=== PATIENT | female | born 1965 | race Caucasian/White ===

== ENCOUNTER 2020-01-18 16:01 | Outpatient (CLI) | payer BC, SELFPAY ==
--- NOTE | ~2020-01-18 | MM_ITS ---
EXAMINATION: MM screening collin BI w elio HISTORY: Screening TECHNIQUE: Craniocaudal and mediolateral oblique 3-D tomosynthesis images were obtained and synthetic 2-D images were generated. CAD analysis was submitted and interpreted. COMPARISON: Comparison to multiple prior studies sequentially, with oldest reviewed study dated 07/2014. BREAST PARENCHYMAL COMPOSITION: There are scattered areas of fibroglandular density. FINDINGS: There is no evidence of suspicious mass, calcification, or architectural distortion to sugg est malignancy in either breast. There has been no suspicious interval change. IMPRESSION: 1. No mammographic evidence of malignancy. 2. Recommend routine screening mammography in one year. BI-RADS Category 1: Negative Reviewed, dictated and finalized at location A.
== END 2020-01-18 16:02 | disposition home or self-care (01) ==
PROVIDERS: PCP Family Medicine; Visit Provider Obstetrics & Gynecology
DX: Z12.31 Encounter for screening mammogram for malignant neoplasm of breast (principal)
CPT/HCPCS: 77063; 77067

== ENCOUNTER 2020-03-07 08:57 | Outpatient (CLI) | payer BC, SELFPAY ==
--- NOTE | ~2020-03-07 | XR_ITS ---
XR abdomen/kub 1V DATE: 03/07/2020 09:12 INDICATION: Constipation TECHNIQUE: AP view COMPARISON: None FINDINGS: There is no evidence of bowel obstruction or any significant retention of fecal material wi thin the colon. The psoas shadows are intact. No visceromegaly or significant abnormal calcification is evident. There is mild rotatory dextroscoliosis of the lumbar spine. There is osteoarthritis at both hip joints. IMPRESSION: Nonspecific abdomen; no evidence of bowel obstruction or constipation Reviewed, dictated and finalized at Location A. Reviewed, dictated and finalized at location A. IMPRESSION: Nonspecific abdomen; no evidence of bowel obstruction or constipati on
== END 2020-03-07 08:58 | disposition home or self-care (01) ==
PROVIDERS: PCP Family Medicine; Visit Provider Physician Assistant
DX: K59.00 Constipation, unspecified (principal)
CPT/HCPCS: 74018

== ENCOUNTER 2020-09-13 08:59 | Outpatient (CLI) | payer BC, SELFPAY | END 2020-09-13 09:00 | disposition home or self-care (01) | LOC: ANHCOVIDVC 08:59 | PROVIDERS: PCP Family Medicine | DX: Z23 Encounter for immunization (principal) | CPT/HCPCS: 0001A; 91300 ==

== ENCOUNTER 2020-09-25 08:58 | Inpatient (IN) | payer BC, SELFPAY ==
[2020-09-25] VITALS (12 sets, daily range): BP systolic 127–157; BP diastolic 64–87; PULSE 68–100; RESP 15–22; TEMP 36.3–37; O2SAT 94–98; BMI 31.6
--- NOTE | 2020-09-25 | ECHO_ITS ---
Patient Info Name: Melina Velasco Age: 55 years : 1965 Gender: Female Ht: 63 in Wt: 178 lbs BSA: 1.92 m2 HR: 81 bpm BP: 135 / 76 mmHg Heart Rhythm: Sinus Rhythm Technical Quality: Poor Exam Date: 09/25/2020 3:51 PM Exam Location: [facility] Pulmonary Exam Room: [facility] Patient Status: Inpatient Admit Date: 09/25/2020 Staff Ordering Physician: Gorge Coronel MD Rehabilitation Therapy Technician: Steffi Hernadez RDCS Attending Provider: Azael Rico MD Exam Type: CA echo dop color flow w con Study Info Indications - NSTEMI Complete two-dimensional, color flow and Doppler transthoracic echocardiogram is performed with contrast to opacify the left ventricle and to improve the deliniation of the left ventricle endocardial borders. Contrast/Agitated Saline Contrast/Ag. Saline: Definity Amount: 1.00 ml Existing IV Access: Yes IV Access Condition: patent with no signs of infiltration Reason for Poor Study: patient body habitus Summary 1. Left ventricular chamber dimension is normal. 2. Left ventricular systolic function is normal, estimated at 65-70%. 3. There is no increased left ventricular wall thickness. 4. The left ventricular diastolic function is grade I diastolic dysfunction. 5. There is mild tricuspid valve regurgitation. Left Ventricle Left ventricular chamber dimension is normal. Left ventricular systolic function is normal, estimated at 65-70%. There is no increased left ventricular wall thickness. The left ventricular diastolic function is grade I diastolic dysfunction. Right Ventricle Right ventricular chamber dimension is normal. Right ventricular systolic function is normal. Left Atria Left atrial chamber dimension is normal. Right Atria Right atrial chamber dimension is normal. Atrial Septum Intact interatrial septum visualized by color flow imaging. Aortic Valve The aortic valve is trileaflet. There is mild aortic valve sclerosis. There is no aortic valve stenosis. There is trace aortic valve regurgitation. Pulmonic Valve The pulmonic valve is normal. There is no pulmonic valve stenosis. There is trace pulmonic regurgitation. Mitral Valve The mitral valve has normal leaflets. There is no mitral valve stenosis. There is trace mitral valve regurgitation. Tricuspid Valve The tricuspid valve leaflets are normal. There is no significant tricuspid valve stenosis. There is mild tricuspid valve regurgitation. No pulmonary hypertension, estimated pulmonary arterial systolic pressure is 29 mmHg. Pericardium/Pleural The pericardium appears normal. There is no pericardial effusion. Inferior Vena Cava Normal inferior vena cava with >50% collapse upon inspiration consistent with normal right atrial pressure, 10 mmHg. Aorta The aortic root size at the sinus of Valsalva is normal. The prox ascending aorta size is normal. Left Ventricular Outflow Tract Name Value Normal LVOT 2D LVOT Diameter 1.98 cm LVOT Doppler LVOT Peak Gradient 7 mmHg LVOT Mean Gradient
--- NOTE | ~2020-09-25 | XR_ITS ---
EXAMINATION: XR chest 1V portable 09/25/2020 13:14 INDICATION: Tingling chest pain PROCEDURE: AP portable chest COMPARISON: No prior studies for comparison. FINDINGS: The lungs are clear. The cardiomediastinal silhouette is within normal limits. There are no pleural effusions. There is no pneumothorax suspected. IMPRESSION: 1: NO ACUTE CARDIOPULMONARY DISEASE. Reviewed, dictated and finalized at location B.
--- NOTE | ~2020-09-25 | CT_ITS ---
EXAMINATION: CTA chest PE protocol EXAM DATE: 09/27/2020 09:28 INDICATION: Tingling chest pain, shortness of breath. TECHNIQUE: Spiral CTA of the chest (pulmonary arteries) was performed with 100 cc Omnipaque 350 intr avenous contrast injection. Images were acquired during the pulmonary arterial phase. Coronal maxi mum intensity projection 3D-reconstructions were created by the technologist on dedicated workstation . Axial, coronal and sagittal reformatted images were reviewed. The dose-length product (DLP) for t his examination was 536.80 mGy-cm. The exposure was tailored according to patient size (auto mA exp osure control), and iterative reconstruction (ASIR) was used as additional dose reduction technique. There is no prior study for comparison. FINDINGS: There are no pulmonary emboli in the 1st through 3rd order (central and interlobar) pulmon niraj arteries. Some loss of attenuation in the left basilar segmental pulmonary from respiratory jai on, these regions not confidently evaluated. No Intraluminal filling defects identified. No thoraci c aortic dissection. Linear right lower lobe subsegmental atelectasis. There are no pleural or marie cardial effusions. Tracheobronchial tree is patent. There is no mediastinal, hilar or axillary ly mphadenopathy. There is no pneumothorax. Mild cardiomegaly. No evidence of coronary arterial patrick cification. There is mild to moderate splenic flexure colonic diverticulosis. There is no adjacent i nflammatory change to suggest diverticulitis. There is thoracic spondylosis without osteoblastic or o steolytic lesions identified. IMPRESSION: 1. Limited left basilar segmental evaluation, but no pulmonary emboli are suspected. 2. Right lower lobe subsegmental atelectasis. 3. Mild cardiomegaly. Reviewed, dictated and finalized at location A. IMPRESSION: 1. Limited left basilar segmental evaluation, but no pulmonary emboli are susp ected. 2. Right lower lobe subsegmental atelectasis. 3. Mild cardiomegaly.
--- NOTE | ~2020-09-25 | US_ITS ---
EXAMINATION: US venous doppler [facility] DATE: 09/27/2020 09:55 INDICATION: Shortness of breath TECHNIQUE: Grayscale ultrasound images without and with compression and Doppler ultrasound images of the bilateral lower extremity veins were obtained. COMPARISON: None. FINDINGS: The visualized portions of right common femoral vein, profunda (deep) femoral vein, femoral vein, pop liteal vein, posterior tibial veins, peroneal veins, gastrocnemius vein and greater saphenous vein ou tflow are patent. The visualized portions of left common femoral vein, profunda femoral vein, femoral vein, popliteal v ein, posterior tibial veins, peroneal veins, gastrocnemius vein and greater saphenous vein outflow ar e patent. IMPRESSION: 1. No deep venous thrombosis in either lower limb. Reviewed, dictated and finalized at location A.
--- NOTE | 2020-09-25 09:09 | ECG_ITS ---
Measurements Intervals Catherine Rate: 74 P: 71 NH: 160 QRS: 19 QRSD: 86 T: 44 QT: 359 QTc: 400 Interpretive Statements SINUS RHYTHM BASELINE ARTIFACT- I, II, AVR, AVL, AVF, V1-V2 NORMAL ECG Electronically Signed On 09-25-2020 9:19:00 CDT by Jagdish Moore D.O.
[2020-09-25 09:29] LABS: Basophils Percent Auto 0.6 % (0.2-1.2); Eosinophils Absolute Auto 0.4 K/mm3 (0-0.3); Eosinophils Percent Auto 7.1 % (0-4.4); Hematocrit 45.9 % (37.0-47.0); Hemoglobin 14.8 g/dL (12.0-15.0); Immature Granulocyte Absolute 0.01 K/mm3 (0.00-0.031); Immature Granulocyte Percent A 0.2 % (0-0.5); Lymphocytes Absolute Auto 1.52 K/mm3 (0.9-3.2); Lymphocytes Percent Auto 30.9 % (18.3-44.2); Mean Corpuscular HGB Conc 32.2 g/dl (32-36); Mean Corpuscular Volume 93.1 fl (80-100); Mean Platelet Volume 8.8 fl (7.4-10.4); Monocytes Absolute Auto 0.4 K/mm3 (0.1-0.6); Monocytes Percent Auto 8.3 % (2.6-8.5); Neutrophils Absolute Auto 2.6 K/mm3 (1.3-6.7); Neutrophils Percent Auto 52.9 % (45.5-73.1); Platelet Count Result 221 k/mm3 (150-375); Red Blood Count 4.93 M/mm3 (4.2-5.4); Red Cell Distribution Width 12.9 % (11.5-14.5); White Blood Count 4.9 K/mm3 (4.5-10.0)
--- NOTE | 2020-09-25 09:48 | ED.GENADULT ---
HPI - General Adult General Chief complaint: Neuro Symptoms/Deficit Stated complaint: arm tingling resolved Time Seen by Provider: 09/25/20 09:03 Source: patient Mode of arrival: EMS Limitations: no limitations History of Present Illness HPI narrative: Patient presents with chief complaint of tingling in the left arm that moved up into her chest that lasted approximately 15 minutes while drying off after getting out of the shower. Patient reports history of right rotator cuff surgery and some cervical issues with occasional nerve pains for which she takes Celebrex. Patient reports the tingling she experiences normally does not move into her chest that she became concerned. Patient states that she did not develop any speech issues, unilateral deficits or extremity weakness, diaphoresis, chest pain, shortness of breath, nausea, vomiting, changes in vision or hearing. Patient was able to call her and called EMS. Patient states that she was given aspirin by EMS. Patient denies any symptoms at this time and states that her symptoms have resolved completely. Patient denies history of W[place] or stroke. Patient reports taking metoprolol for tachycardia but otherwise denies any other cardiac issues. Patient denies close family history of [place] or stroke. Patient denies smoking, drinking alcohol or using recreational drugs. Patient denies any changes to her medications recently. Related Data Allergies Allergy/AdvReac Type Severity Reaction Status Date / Time cefuroxime Allergy Unknown unknown Verified 09/25/20 09:22 cephalexin Allergy Unknown unknown Verified 09/25/20 09:22 Review of Systems Review of Systems: Narrative: CONSTITUTIONAL: Denies fever, chills, or sweats. EYES: Denies visual changes, redness, or discharge. ENT: Denies rhinorrhea, congestion, sore throat, or otalgia. CARDIOVASCULAR: Denies chest pain, palpitations, or edema. RESPIRATORY: Denies cough or dyspnea. GASTROINTESTINAL: Denies abdominal pain, nausea, vomiting, or diarrhea. GENITOURINARY: Denies dysuria or hematuria. SKIN: Denies rash or itching. MUSCULOSKELETAL: Denies back pain, joint pain, or myalgia. NEUROLOGIC: Reports resolved tingling denies headache, numbness, dizziness, or weakness. PSYCHIATRIC: Denies anxiety or depression. [facility] Past Medical History Medical History Complete rotator cuff tear or rupture of right shoulder, not specified as traumatic Irritable bowel Lumbar radiculitis Neuropathy Right rotator cuff tear Surgical History Surgical History H/O section (~10/2003) H/O section (~01/2007) H/O dilation and curettage (~2002) S/P tonsillectomy and adenoidectomy Family History Family History Father Family history of gout Hypertension Family history of alcoholism Cerebrovascular accident Family history of arthritis Mother Hypertension Family history of arthritis Family history of malignant neoplasm of breast in first degree relative Other Family history of scoliosis Social History Social History Social History: to Rufino who is the durable power attorney law clerk for healthcare. The patient is a full code. She has 2 children. She is a homemaker. Lifelong nonsmoker. Does not use any alcohol or illicit drugs. Smoking status: Never smoker Second hand tobacco smoke exposure: No Alcohol intake: never Substance use: never Substance use type: does not use Gender identity (if verbalized by the patient): Female Spiritual care concerns: No Exam Narrative: Exam Narrative: GENERAL: Well-appearing, well-nourished, and in no acute distress. HEAD: Normocephalic, atraumatic. EYES: PERRLA and EOMI. ENT: Nares clear, no rhinorrhea or epistaxis. Mucous membranes moist. Oropharynx without t
[2020-09-25 09:51] LABS: Anion Gap 6 mmol/L (8-16); Blood Urea Nitrogen 17 mg/dL (7-17); Carbon Dioxide 30 mmol/L (22-30); Chloride 104 mmol/L (98-107); Estimated CRCL calculation 89 ml/min; Estimated Glomerular Filt Rate > 60; Glucose 92 mg/dL (65-105); Potassium 4.1 mmol/L (3.4-5.0); Sodium 140 mmol/L (137-145)
[2020-09-25 10:01] LABS: INR 0.8; Prothrombin Time 11.8 Seconds (11.1-14.7)
[2020-09-25 10:02] LABS: Partial Thromboplastin Time 28.6 SECONDS (22.3-36.8)
[2020-09-25 10:03] LABS: Troponin I 0.023 ng/mL (0.000-0.034)
[2020-09-25 12:43] LABS: Troponin I 0.552 ng/mL (0.000-0.034)
--- NOTE | 2020-09-25 13:34 | PC.NURSE ---
Called dietary at this time and ordered lunch tray for pt.
--- NOTE | 2020-09-25 14:45 | ADMGEN ---
This patient, Melina Velasco, was admitted to IMU Room 206-01 at 1425 on 09/25/2020. Patient/family oriented to hospital policies and general routines including ID bracelet, bed and alarms, visiting hours, pain management, procedures, bathroom and other care routines, personal items, smoking policy, room service/diet, and visiting hours. Information on how to activate the Rapid Response Team has been discussed. Patient/Family are encouraged to report perceived risks to care and to ask questions if they do not understand what they are told or what they should do.
--- NOTE | 2020-09-25 14:46 | PM.IMHP ---
H&P: HPI History of Present Illness Date/Time: 09/25/20 14:46 this is a 55-year-old female patient who has no prior history of heart disease. The patient does have some back pain and some arthritis. She has been on Celebrex. The patient was drying off after getting out of the shower when she developed some tingling to her left arm that up into her chest. It did not radiate into her neck and this lasted for about 15 minutes while dry off after getting out of the shower. The patient was not short of breath. She said that it was a dull pain. She said that she had pain in till she got in the ambulance and took aspirin. She had no nausea vomiting. No fever chills. No cough. The patient has a history of tachycardia and has been placed on metoprolol sometime ago. Patient stated she is due for at this morning. She does not feel any palpitations today but she has felt palpitations in the past. She does not smoke drink or use recreational drugs. Troponin was noted to be 0.552 on her 2nd troponin. Chest x-ray was read as no acute cardiopulmonary disease. Pain. The patient stated that she had a Holter monitor placed last year. Reviewing the records I see a Holter monitor from 05/25/2020. This was found to be unremarkable Holter monitor with sinus rhythm a heart rate of 81. Rare supraventricular ectopy in the forms of PACs. Patient had been placed on metoprolol last year for the tachycardia and palpitations the patient is being admitted to inpatient on the date of service of 09/25/2020.. Chief Complaint: Chest pain Review of Systems Review of Systems: All systems reviewed & are unremarkable except as noted in HPI and below Constitutional: Constitutional: Reports as per HPI and Reports no additional constitutional complaints Eyes: Eyes: Reports as per HPI and Reports no additional eye complaints ENT: Reports system reviewed and no additional complaints, except as documented and Reports Normal hearing present Cardiovascular: Cardiovascular: Reports no additional cardiovascular complaints Respiratory: Respiratory: Reports no additional respiratory complaints and Reports no additional respiratory complaints Gastrointestinal: Gastrointestinal: Reports as per HPI and Reports no additional gastrointestinal complaints Musculoskeletal: Musculoskeletal: Reports no additional musculoskeletal complaints Integumentary/Breasts: Skin/Breast: Reports system reviewed and no additional complaints, except as docu and Reports as per HPI Neurologic: Reports system reviewed and no additional complaints, except as documented, Reports as per HPI and Reports Normal hearing present Psychiatric: Psychiatric: Reports no additional psychiatric complaints and Reports as per HPI Endocrine: Endocrine: Reports no additional endocrine complaints Hematologic/Lymphatic: Hematologic/Lymphatic: Reports no additional hematologic/lymphatic complaints Allergic/Immunologic: Allergic/Immunologic: Reports no additional allergic/immunologic complaints [facility] Past Medical History Medical History (Updated 09/25/20 @ 14:56 by Giselle Kahn NP) Complete rotator cuff tear or rupture of right shoulder, not specified as traumatic Irritable bowel Lumbar radiculitis Neuropathy Right rotator cuff tear Surgical History Surgical History (Updated 09/25/20 @ 14:56 by Giselle Kahn NP) H/O section (~10/2003) H/O section (~01/2007) H/O dilation and curettage (~2002) S/P tonsillectomy and adenoidectomy Family History Family History Father Family history of gout Hypertension Family history of alcoholism Cerebrovascular accident Family history of arthritis Mother Hypertension Family history of arthritis Family history of malignant neoplasm of breast in first degree relative Other Family history of scoliosis Social History Social History (Updated 09/25/20 @ 14:58 by Giselle Kahn,
--- NOTE | 2020-09-25 15:24 | PM.CNCAR ---
Assessment and Plan Assessment and plan (1) Non-ST elevation AR (NSTEMI): Code(s): I21.4 - Non-ST elevation (NSTEMI) myocardial infarction Status: Acute Assessment and Plan: Patient has ruled in for myocardial infarction. Her left arm pain is her angina. Will DC the stress test which is ordered and after talked her about the risks benefits alternative is will perform an ischemic evaluation via a cardiac catheterization. Keep her NPO after midnight less she becomes unstable in which case we will do it emergently. Will continue to trend cardiac enzymes until peak. I ordered a 2D echocardiogram with Doppler. Lovenox 1 milligram/kilogram subcu x1. Aspirin 81 mg p.o. daily. Metoprolol succinate will be continued at 25 mg p.o. daily. Rosuvastatin 20 mg p.o. daily to be started also. P.r.n. nitroglycerin 0.4 mg sublingual p.r.n. chest pain. (2) Mixed hyperlipidemia: Code(s): E78.2 - Mixed hyperlipidemia Status: Acute Assessment and Plan: Start statin (3) Palpitations: Code(s): R00.2 - Palpitations Status: Acute Assessment and Plan: On metoprolol (4) Left arm pain: Code(s): M79.602 - Pain in left arm Status: Acute Assessment and Plan: This is her angina History of Present Illness History of Present Illness Consult date/time: 09/25/20 15:24 Requesting physician: Abdirashid Barahona PA-C Consult reason: Other (Non-STEMI) Reason For Visit: NSTEMI- Elvated troponin Narrative: Date of service 09/25/2020 Reason for consultation: Arm pain and positive troponins History patient is a 55-year-old female who does have high a cholesterol but otherwise is a fairly healthy woman. She has a history of palpitations but has no diabetes, high blood pressure. She does not have a history of premature coronary disease in family. She came to the hospital today after an episode of left arm pain. She got out of the shower and shortly thereafter started to develop some left arm discomfort. It started in her left shoulder and went up and down her left arm. She was a little bit nauseated but had no chest pain, shortness of breath, diaphoresis. She simply did feel very well and after a few minutes she decided to call 911. EMS told her to chew up a adult strength aspirin which she did and her symptoms started to resolve. EMS did arrive and had her 2 more baby aspirins. She then went to the emergency department. Initial troponin was negative but the 2nd troponin has turned positive at 0.552. Her symptoms in total lasted about an hour. She is now arm and chest pain-free. In general she has not had any recent chest pain with exertion. She has been more dyspneic with activity over the past couple months such as doing things like climbing up and down stairs. Otherwise she denies any syncope, presyncope, paroxysmal nocturnal dyspnea, orthopnea, edema. She does have a history of palpitations which are brief and lasting for a few seconds. She takes metoprolol for the palps Review of Systems Review of Systems: All systems reviewed & are unremarkable except as noted in HPI and below Constitutional: Constitutional: Denies weakness Eyes: Eyes: Denies blurry vision ENT: Reports Normal hearing present Cardiovascular: Cardiovascular: Denies leg edema and Reports palpitations Comments: Arm pain Respiratory: Respiratory: Reports dyspnea on exertion Gastrointestinal: Gastrointestinal: Denies abdominal pain Genitourinary: Genitourinary: Denies flank pain Musculoskeletal: Musculoskeletal: Reports back pain and Denies neck pain Integumentary/Breasts: Skin/Breast: Denies dry skin Neurologic: Denies headache(s) Psychiatric: Psychiatric: Denies anxiety and Denies confusion Endocrine: Endocrine: Denies fatigue and Denies flushing Hematologic/Lymphatic: Hematologic/Lymphatic: Denies easy bleeding Allergic/Immunologic: Allergic/Immunologic: Denies GI upset with certain foods and D
[2020-09-25] MEDS: PERFLUTREN LIPID MICROSPHERES 1.5 ML VIAL DILUTED TO 10 ML TOTAL VOLUME IV PUSH (16:20)
[2020-09-25] MEDS: ROSUVASTATIN 10 MG TABLET 20 MG PO (17:59)
[2020-09-25] MEDS: ENOXAPARIN 80 MG/0.8 ML SYRINGE SUB-Q (17:59)
[2020-09-25] MEDS: METOPROLOL SUCCINATE EXT REL 25 MG TABCR PO (17:59)
[2020-09-25 19:44] LABS: Troponin I 0.356 ng/mL (0.000-0.034)
[2020-09-25] MEDS: ACETAMINOPHEN 325 MG TABLET 650 MG PO (21:46)
[2020-09-26] VITALS (23 sets, daily range): BP systolic 111–141; BP diastolic 58–98; PULSE 64–98; RESP 14–20; TEMP 36.1–36.8; O2SAT 94–98
[2020-09-26 06:02] LABS: Basophils Percent Auto 0.4 % (0.2-1.2); Eosinophils Absolute Auto 0.2 K/mm3 (0-0.3); Eosinophils Percent Auto 3.6 % (0-4.4); Hematocrit 41.6 % (37.0-47.0); Hemoglobin 13.5 g/dL (12.0-15.0); Immature Granulocyte Absolute 0.02 K/mm3 (0.00-0.031); Immature Granulocyte Percent A 0.3 % (0-0.5); Lymphocytes Absolute Auto 2.05 K/mm3 (0.9-3.2); Lymphocytes Percent Auto 30.7 % (18.3-44.2); Mean Corpuscular HGB Conc 32.5 g/dl (32-36); Mean Corpuscular Volume 92.4 fl (80-100); Mean Platelet Volume 9.1 fl (7.4-10.4); Monocytes Absolute Auto 0.6 K/mm3 (0.1-0.6); Monocytes Percent Auto 8.4 % (2.6-8.5); Neutrophils Absolute Auto 3.8 K/mm3 (1.3-6.7); Neutrophils Percent Auto 56.6 % (45.5-73.1); Platelet Count Result 213 k/mm3 (150-375); Red Cell Distribution Width 12.9 % (11.5-14.5); White Blood Count 6.7 K/mm3 (4.5-10.0)
[2020-09-26 06:06] LABS: Alanine Aminotransferase 23 U/L (4-35); Alkaline Phosphatase 81 U/L (38-126); Anion Gap 6 mmol/L (8-16); Aspartate Amino Transferase 26 U/L (14-36); Bilirubin,Total 0.3 mg/dL (0.2-1.3); Blood Urea Nitrogen 16 mg/dL (7-17); Calcium 8.9 mg/dL (8.4-10.2); Carbon Dioxide 28 mmol/L (22-30); Chloride 106 mmol/L (98-107); Estimated CRCL calculation 94 ml/min; Estimated Glomerular Filt Rate > 60; Glucose 96 mg/dL (65-105); Magnesium 2.1 mg/dL (1.6-2.3); Potassium 3.8 mmol/L (3.4-5.0); Sodium 140 mmol/L (137-145)
[2020-09-26 06:10] LABS: Lactic Acid Reflex 0.8 mmol/L (0.7-2.1)
[2020-09-26] MEDS: PANTOPRAZOLE 40 MG TABLET PO (09:13)
[2020-09-26] MEDS: ASPIRIN 81 MG ENTERIC TABLET PO (09:13)
[2020-09-26] MEDS: ROSUVASTATIN 10 MG TABLET 20 MG PO (09:13)
[2020-09-26] MEDS: METOPROLOL SUCCINATE EXT REL 25 MG TABCR PO (09:14)
--- NOTE | 2020-09-26 11:59 | P.PCNCC_ITS ---
Cardiac Cath Procedure Note Date of procedure:: 09/26/20 Performing physician:: Roberto Paredes MD date of service September 26, 2020 Procedure Procedure performed:: 1-Moderate sedation that started at 12:11 p.m.and ended at 12:24 p.m. using 2 of Versed and 50mcg fentanyl. The registered nurse was Kristie nugent 2-Selective left and right coronary angiogram. 3-Left heart catheterization with measurement of LVEDP and measurement of gradi ent across aortic valve. 4-Right common femoral arterial angiogram. 5-Deployment of 6 Australian Angio-Seal. Sedation/Medication given:: Moderate sedation. Access site:: Right common femoral artery. Estimated blood loss:: 10cc Procedure note:: After informed consent patient was brought in to warehouse laborer with the was draped and prepped in usual manner. Moderate sedation was given and the right groin was infiltrated using 1% lidocaine. Five Australian sheath was obtained using micropuncture needle and the modified Seldinger technique. Selective left coronary angiogram was done using JL4 catheter with the tip of the catheter placed in the left main coronary artery. Selective right coronary angiogram was done using JR4 catheter with the tip of the catheter placed to the right coronary artery. After that 5 Australian pigtail catheter was advanced across the aortic valve into the left ventricle with measurement of LVEDP and measurement of gradient across aortic valve. Right common femoral arterial angiogram was done. Findings:: 1- left coronary artery is a large artery that divides into large LAD, Medium-sizedcircumflex artery. Left main is free of disease. 2- left anterior descending artery is a large artery that runs and wraps around the apex. Free of disease. Large diagonal branch free of disease. 3- leftcircumflex artery is a Medium-sized artery and free of disease. 4- right coronary artery is very huge artery and free of disease. It is dominant. 5- LVEDP was 10 mm Hg and no gradient across aortic valve. 6- LV angiogram shows normal LV systolic function with estimated ejection fraction 75%. Normal ascending aorta. 6- opening arterial pressure was 150/80 and closing pressure was 120/70 7- right femoral artery angiogram shows no significant disease in the right common femoral artery. Conclusion:: 1- No coronary artery disease. 2- Unsure of the etiology of the troponin elevation. Assessment and Plan Additional Plan Continue risk factor modification for CAD. If There is any clinical suspicion for pulmonary embolism, rule it out.
--- NOTE | 2020-09-26 11:59 | WPDHPUPDATE1 ---
History and Physical Update Update Date/Time: 09/26/20 11:59 History and Physical has been reviewed, including an updated exam of the patient. There are NO changes in the patient's condition. Risks, benefits, and alternatives have been discussed and questions answered. Patient agrees to proceed with procedure.
--- NOTE | 2020-09-26 11:59 | WPDMODSED ---
Moderate Sedation Note-Pt Data Patient Data Allergies Allergy/AdvReac Type Severity Reaction Status Date / Time cefuroxime Allergy Unknown unknown Verified 09/25/20 09:22 cephalexin Allergy Unknown unknown Verified 09/25/20 09:22 Home Medications Medication Instructions Recorded Confirmed Type metoprolol succinate 25 mg 25 mg PO BID #180 tablet 05/21/20 09/25/20 Rx tablet,extended release 24 hr omeprazole 20 mg capsule,delayed 20 mg PO DAILY #90 cap 07/01/20 09/25/20 Rx release celecoxib 200 mg capsule 200 mg PO BID #180 cap 09/04/20 09/25/20 Rx Current Medications: Active Medications Acetaminophen (Acetaminophen 325 Mg Tablet) 650 mg PO ONCE PRN PRN Reason: Mild Pain (1-3) or Fever Last Admin: 09/25/20 21:46 Dose: 650 mg Documented by: Aspirin (Aspirin 81 Mg Enteric Tablet) 81 mg PO [facility] Last Admin: 09/26/20 09:13 Dose: 81 mg Documented by: Celecoxib (Celecoxib 200 Mg Capsule) 200 mg PO BID [facility] Metoprolol Succinate (Metoprolol Succinate Ext Rel 25 Mg Tabcr) 25 mg PO [facility] Last Admin: 09/26/20 09:14 Dose: 25 mg Documented by: Pantoprazole Sodium (Pantoprazole 40 Mg Tablet) 40 mg PO DAILY [facility] Stop: 10/26/20 09:01 Last Admin: 09/26/20 09:13 Dose: 40 mg Documented by: Rosuvastatin Calcium (Rosuvastatin 10 Mg Tablet) 20 mg PO [facility] Last Admin: 09/26/20 09:13 Dose: 20 mg Documented by: Sedation/Anesthesia: No previous sedation/anesthesia problems (including family history). [facility] Past Medical History Medical History Complete rotator cuff tear or rupture of right shoulder, not specified as traumatic Irritable bowel Lumbar radiculitis Neuropathy Right rotator cuff tear Surgical History Surgical History H/O section (~10/2003) H/O section (~01/2007) H/O dilation and curettage (~2002) S/P tonsillectomy and adenoidectomy Family History Family History Father Family history of gout Hypertension Family history of alcoholism Cerebrovascular accident Family history of arthritis Mother Hypertension Family history of arthritis Family history of malignant neoplasm of breast in first degree relative Other Family history of scoliosis Social History Social History Social History: to Rufino who is the durable power trial attorney for healthcare. The patient is a full code. She has 2 children. She is a homemaker. Lifelong nonsmoker. Does not use any alcohol or illicit drugs. Smoking status: Never smoker Second hand tobacco smoke exposure: No Alcohol intake: never Substance use: never Substance use type: does not use Gender identity (if verbalized by the patient): Female Spiritual care concerns: No Mod Sed Physical Exam Physical Exam Pre Procedural Exam: Normal: Appearance, Eyes, Ears, Nose, Neck, Throat, Airway, Lungs, Heart Size, Heart Rate, Heart Rhythm, Neuro Exam, Abdomen, Liver, Kidneys, Spleen, Breasts, Genitalia, Extremities and Skin Hours since solid foods: 8 Hours since liquid intake: 8 Internal Medicine - PN: Obj Da Vital Signs Vital Signs: Vital Signs - 24 hr 09/25/20 12:46 09/25/20 13:34 09/25/20 14:20 Temperature Pulse Rate 79 83 97 Respiratory Rate 17 19 22 H Blood Pressure 139/71 135/76 128/75 Pulse Oximetry 96 98 94 09/25/20 14:49 09/25/20 16:00 09/25/20 17:59 Temperature 36.4 C 36.4 C Pulse Rate 84 84 100 Respiratory Rate 17 17 Blood Pressure 146/82 H 146/82 H Pulse Oximetry 97 97 09/25/20 20:00 09/25/20 22:00 09/26/20 00:00 Temperature 36.3 C L 36.1 C L Pulse Rate 91 79 68 Respiratory Rate 18 20 Blood Pressure 141/87 H 126/75 Pulse Oximetry 95 96 09/26/20 02:00 09/26/20 03:56 09/26/20 04:00 Temperature 36.3 C L Pulse Rate 70 64 66 Respiratory Rate 20
--- NOTE | 2020-09-26 14:07 | SUR.PHASEII ---
Right femoral artery site with dressing intact, no signs of redness, hematoma or bleeding. right pedal pulse palpable. HOB elevated to 30 degrees at 1340. Drinking sips of clear liquids without nausea. Report called to Britt FULLER on IMU. at bedside.
[2020-09-26] MEDS: SODIUM CHLORIDE 0.9% IV 1,000 ML 125 ML IV CONT (14:19)
[2020-09-26] MEDS: CELECOXIB 200 MG CAPSULE PO (14:20)
--- NOTE | 2020-09-26 18:12 | PM.IMPN ---
Progress Note: A&P Assessment and Plan (1) Chest pain: Code(s): R07.9 - Chest pain, unspecified Status: Acute Assessment and Plan: Todd presents with acute onset of chest pain getting out of the shower. CXR clear. Echo showing EF 65-70%, grade I diastolic dysfunction. Troponin elevated to 0.66. LHC performed today essentially normal. Etiology unclear but consider pericarditis/myocarditis or PE especially given her recent complaints of MARTIN. Continue IV fluids. Check CTA tomorrow 24hours after LHC. Check dopplers in am. Hold anticoagulation given the recent LHC. (2) Elevated troponin: Code(s): R77.8 - Other specified abnormalities of plasma proteins Status: Acute Assessment and Plan: As above. (3) Tachyarrhythmia: Code(s): R00.0 - Tachycardia, unspecified Status: Acute Assessment and Plan: Pateint with hx of tachycardia and palpitations. Holter last year results noted and was started on metoprolol. This has been resumed here. (4) Mixed hyperlipidemia: Code(s): E78.2 - Mixed hyperlipidemia Status: Acute Assessment and Plan: TG 131, TC 220, LDL 142, HDL 52 in June. LFTs okay. Crestor started. (5) GERD (gastroesophageal reflux disease): Code(s): K21.9 - Gastro-esophageal reflux disease without esophagitis Status: Acute Assessment and Plan: Stable. Continue home medication. (6) DVT prophylaxis: Code(s): Z29.9 - Encounter for prophylactic measures, unspecified Status: Acute Assessment and Plan: lovenox held today for LHC. resume in am if LE doppler negative Subjective Date/time seen: 09/26/20 18:12 Interval history: 55yo female here for chest pressure that radiated down her left arm. She is back from her [facility]. No further chest pressure. No recent fever or chills. Did have cold symptoms 2 weeks ago. Received her first COVID vaccine 10 days ago. Has been more SOB past few weeks with exertion. Exam Narrative: Exam Narrative: AF 97.5 132/74 97 14 98%ra Gen - NARD Chest - CTA bilaterally, nml RR CV - RRR S1/S2 Abd - Soft, NT/ND, Positive BS Ext - No pedal edema. right groin site without hematoma. 2+ PT bilaterally Neuro - Alert and oriented. Nonfocal exam. Psych - Nml mood and affect Skin - Warm and dry Objective Data Vital Signs Vital Signs: Vital Signs - 24 hr 09/25/20 20:00 09/25/20 22:00 09/26/20 00:00 Temperature 97.4 F L 97.0 F L Pulse Rate 91 79 68 Pulse Rate [Bilateral Pedal (Dorsalis Pedis) Palpation] Respiratory Rate 18 20 Blood Pressure 141/87 H 126/75 Pulse Oximetry 95 96 09/26/20 02:00 09/26/20 03:56 09/26/20 04:00 Temperature 97.3 F L Pulse Rate 70 64 66 Pulse Rate [Bilateral Pedal (Dorsalis Pedis) Palpation] Respiratory Rate 20 20 Blood Pressure 112/62 Pulse Oximetry 97 97 09/26/20 06:00 09/26/20 08:00 09/26/20 09:34 Temperature 97.2 F L Pulse Rate 80 85 Pulse Rate [Bilateral Pedal (Dorsalis Pedis) Palpation] Respiratory Rate 14 Blood Pressure 141/80 H Pulse Oximetry 98 98 09/26/20 10:00 09/26/20 12:40 09/26/20 12:55 Temperature Pulse Rate 84 76 76 Pulse Rate [Bilateral Pedal (Dorsalis Pedis) Palpation] 84 84 Respiratory Rate 16 16 Blood Pressure 123/98 H 125/78 Pulse Oximetry 95 95 09/26/20 13:10 09/26/20 13:25 09/26/20 13:40 Temperature Pulse Rate 76 72 76 Pulse Rate [Bilateral Pedal (Dorsalis Pedis) Palpation] 84 84 77 Respiratory Rate 16 16 16 Blood Pressure 125/78 125/73 111/73 Pulse Oximetry 94 94 97 09/26/20 14:00 09/26/20 14:40 09/26/20 15:40 Temperature 97.3 F L 97.8 F Pulse Rate 88 88 90 Pulse Rate [Bilateral Pedal (Dorsalis Pedis) Palpation] Respiratory Rate 16 16 Blood Pressure 135/80 137/77 Pulse Oximetry 96 97 09/26/20 16:00 09/26/20 16:40 Temperature 97.5 F L Pulse Rate 90 98 Pulse Rate [Bilateral Pedal (Dorsalis Pedis) Pa
[2020-09-26] MEDS: SODIUM CHLORIDE 0.9% IV 1,000 ML 100 ML IV CONT (22:52)
[2020-09-27] VITALS (7 sets, daily range): BP systolic 127–138; BP diastolic 59–69; PULSE 67–93; RESP 14–16; TEMP 36.2–36.9; O2SAT 95–99
[2020-09-27] MEDS: ACETAMINOPHEN 325 MG TABLET 650 MG PO (05:34)
[2020-09-27] MEDS: SODIUM CHLORIDE 0.9% IV 1,000 ML 100 ML IV CONT (06:59)
[2020-09-27] MEDS: ROSUVASTATIN 10 MG TABLET 20 MG PO (08:53)
[2020-09-27] MEDS: METOPROLOL SUCCINATE EXT REL 25 MG TABCR PO (08:53)
[2020-09-27] MEDS: CELECOXIB 200 MG CAPSULE PO (08:54)
[2020-09-27] MEDS: PANTOPRAZOLE 40 MG TABLET PO (08:54)
[2020-09-27] MEDS: ASPIRIN 81 MG ENTERIC TABLET PO (08:54)
--- NOTE | 2020-09-27 10:09 | PM.PNCARD ---
Progress Note: A&P Assessment and Plan (1) Non-ST elevation IN (NSTEMI): Code(s): I21.4 - Non-ST elevation (NSTEMI) myocardial infarction Status: Acute Assessment and Plan: Patient has ruled in for myocardial infarction. I ordered a CT scan of her chest to rule out PE as an etiology of her non-STEMI although not likely. Underlying etiology may be secondary to coronary spasm as there was no significant coronary disease noted by echocardiogram. ContinueAspirin 81 mg p.o. daily, metoprolol succinate, Rosuvastatin 20 mg p.o. daily to be started and P.r.n. nitroglycerin 0.4 mg sublingual p.r.n. chest pain /arm pain at discharge. (2) Mixed hyperlipidemia: Code(s): E78.2 - Mixed hyperlipidemia Status: Acute Assessment and Plan: Start statin (3) Palpitations: Code(s): R00.2 - Palpitations Status: Acute Assessment and Plan: On metoprolol (4) Left arm pain: Code(s): M79.602 - Pain in left arm Status: Acute Assessment and Plan: This is her angina Additional Plan Continue risk factor modification for CAD. DC IV fluids Subjective Date/time seen: 09/27/20 10:09 Interval history: 55yo female here for chest pressure that radiated down her left arm. Date of service 09/27/2020: Feels well. No chest pain, shortness breath, groin pain Review of Systems Review of Systems: All systems reviewed & are unremarkable except as noted in HPI and below Constitutional: Constitutional: Denies fatigue, Denies headache(s) and Denies weakness Eyes: Eyes: Denies blurry vision ENT: Reports Normal hearing present, Denies headache(s), Denies lip swelling and Denies neck pain Cardiovascular: Cardiovascular: Denies leg edema, Reports palpitations and Reports dyspnea on exertion Respiratory: Respiratory: Reports dyspnea on exertion Gastrointestinal: Gastrointestinal: Denies abdominal pain Genitourinary: Genitourinary: Denies flank pain Musculoskeletal: Musculoskeletal: Reports back pain and Denies neck pain Integumentary/Breasts: Skin/Breast: Denies dry skin Neurologic: Reports Normal hearing present, Denies confusion, Denies headache(s) and Denies weakness Psychiatric: Psychiatric: Denies anxiety and Denies confusion Endocrine: Endocrine: Denies fatigue, Denies flushing and Reports palpitations Hematologic/Lymphatic: Hematologic/Lymphatic: Denies easy bleeding Allergic/Immunologic: Allergic/Immunologic: Denies GI upset with certain foods and Denies lip swelling Exam Narrative: Exam Narrative: Patient is awake alert oriented appears to be in no acute distress. Appears stated age Const: General: comfortable and no acute distress; No confusion Orientation/consciousness: No confusion HENMT: General nose exam: Normal nares present Eyes: Sclera: sclerae normal Neck: Neck: supple and no JVD Chest: Other: No reproducible chest wall pain to palpation Resp: Auscultation: clear to auscultation bilaterally Cardio: Rate: regular rate Rhythm: regular rhythm Heart sounds: no murmurs Other: right groin without hematoma ecchymosis or bruit. Bandage removed GI: Inspection: normal to inspection Skin: General skin exam: normal color and no rashes or lesions noted Neuro: General: No confusion Cranial nerves: Yes Normal hearing present Cognition (Neuro): normal cognition Speech: normal speech Extrem: General: normal to inspection and no edema Psych: Mental Status: mental status grossly normal Objective Data Vital Signs Vital Signs: Vital Signs - 24 hr 09/26/20 12:40 09/26/20 12:55 09/26/20 13:10 Temperature Pulse Rate 76 76 76 Pulse Rate [Bilateral Pedal (Dorsalis Pedis) Palpation] 84 84 84 Respiratory Rate 16 16 16 Blood Pressure 123/98 H 125/78 125/78 Pulse Oximetry 95 95 94 09/26/20 13:25 09/26/20 13:40 09/26/20 14:00 Temperature Pulse Rate 72 76 88 Pulse Rate [Bilateral Pedal (Dorsalis Pedis) Palpation] 84 77
--- NOTE | 2020-09-27 11:00 | PM.DS ---
DS: Admitting Diagnosis Admitting Diagnosis Admitting Diagnosis: Chest pain DS: Discharge Diagnosis Discharge Diagnosis (1) Chest pain: Code(s): R07.9 - Chest pain, unspecified Status: Acute Assessment and Plan: Todd presents with acute onset of chest pain getting out of the shower. CXR clear. Echo showing EF 65-70%, grade I diastolic dysfunction but no wall motion abnormalities. Troponin elevated to 0.66. LHC performed which was essentially normal. CTA chest negative for PE. LE venous dopplers also negative for DVT. Concern for possible coronary spasm. Continue metoprolol, crestor and ASA. Also home with NTG SL. (2) Elevated troponin: Code(s): R77.8 - Other specified abnormalities of plasma proteins Status: Acute Assessment and Plan: As above. (3) Tachyarrhythmia: Code(s): R00.0 - Tachycardia, unspecified Status: Acute Assessment and Plan: Pateint with hx of tachycardia and palpitations. Holter last year results noted and was started on metoprolol. This was resumed here. (4) Mixed hyperlipidemia: Code(s): E78.2 - Mixed hyperlipidemia Status: Acute Assessment and Plan: TG 131, TC 220, LDL 142, HDL 52 in June. LFTs okay. Crestor started here. (5) GERD (gastroesophageal reflux disease): Code(s): K21.9 - Gastro-esophageal reflux disease without esophagitis Status: Acute Assessment and Plan: Stable. We continued her home medication. DS: Summary Hospital Course Reason for hospitalization: 55yo female here for chest pain. Please see H&P for details Hospital Course: Please see above for details of hospital course. Status at Discharge Cognitive/behavioral status at discharge: Stable. Time Spent with Patient Time attestation: Total time spent providing and/or coordinating discharge services: 34 minutes. Time spent: Greater than 30 minutes Specific discharge activities: Discussed with patient Exam Narrative: Exam Narrative: AF 98.1 138/60 73 14 99%ra Gen - NARD Chest - CTA bilaterally, nml RR CV - RRR S1/S2; telemetry showing no significant dysrhythmias Abd - Soft, NT/ND, Positive BS Ext - No pedal edema. Psych - Nml mood and affect Skin - Warm and dry Discharge Plan Discharge Attending physician on discharge: [place] Consulting providers: Gorge Coronel ; Abdirashid Barahona Discharging Clinician: [place] Park Discharge Date/Time: 09/27/20 11:08 Patient Disposition: Home, Self-Care Activity: as tolerated Diet: heart healthy Discharge Instructions: Please avoid large gathering, wear face coverings in public and practice social distance. Contact your doctor or come to the Emergency Room if you have any recurrent chest pain or other worrisome symptoms. Avoid NSAIDs (ibuprofen, naproxen, Aleve). Tylenol is safe to take. Follow-up with your doctor in 1-2 weeks. Please call for appointment. Follow-up with the outsole handler in 1-2 weeks. Please call for appointment. Patient Instructions: Antibiotic Form Stand Alone Forms: General Discharge Information Follow-up/Referrals: Gorge Coronel MD [Physician] - Call for Appointment Merary Hoang MD [Primary Care Provider] - Call for Appointment Discharge Medications: New rosuvastatin [Crestor] 10 mg Tablet 20 mg PO QAM Qty: 30 RF: 2 aspirin 81 mg Tablet,Delayed Release (Dr/Ec) 81 mg PO QAM Qty: 30 RF: 2 nitroglycerin [Nitrostat] 0.4 mg Tablet, Sublingual 0.4 mg sublingual Q5MIN PRN (Reason: Chest Pain) Qty: 30 RF: 2 Continued metoprolol succinate 25 mg tablet extended release 24 hr 25 mg PO BID Qty: 180 RF: 1 omeprazole 20 mg capsule,delayed release(DR/EC) 20 mg PO DAILY Qty: 90 RF: 1 celecoxib [Celebrex] 200 mg capsule 200 mg PO BID Qty: 180 RF: 2 Date of admission: 09/25/20 13:26 Primary Care Provider: Merary Hoang
== END 2020-09-27 12:28 | disposition home or self-care (01) | DRG 287 ==
LOC: ANHED 13:21 → ANHIMU 16:04
PROVIDERS: Internal Medicine Cardiovascular Disease; Nurse Practitioner; Physician Assistant; Admitting Provider Family Medicine; Emergency Provider Emergency Medicine; PCP Family Medicine; Visit Provider Internal Medicine
PROC: 4A023N7 Measurement of Cardiac Sampling and Pressure, Left Heart, Percutaneous Approach (ICD-10-PCS; CPT 93452; principal; 2020-09-26 12:00)
PROC: 4A023N7 Measurement of Cardiac Sampling and Pressure, Left Heart, Percutaneous Approach (ICD-10-PCS; 2020-09-26 12:00)
DX: I20.1 Angina pectoris with documented spasm (principal); R00.2 Palpitations; E78.2 Mixed hyperlipidemia; K58.9 Irritable bowel syndrome, unspecified; G62.9 Polyneuropathy, unspecified; M54.16 Radiculopathy, lumbar region; K21.9 Gastro-esophageal reflux disease without esophagitis
CPT/HCPCS: 36415; 71045; 71275; 80048; 80053; 83605; 83735; 84443; 84484; 85025; 85610; 85730; 93005; 93458; 93970; 96374; 99285; A9270; C1760; C1887; C1894; C8929; G0269; J1644; J1650; J2250; J3010; J7030; J7040; Q9957; Q9967

== ENCOUNTER 2020-10-07 09:01 | Outpatient (CLI) | payer BC, SELFPAY | END 2020-10-07 09:02 | disposition home or self-care (01) | LOC: ANHCOVIDVC 09:01 | PROVIDERS: PCP Family Medicine | DX: Z23 Encounter for immunization (principal) | CPT/HCPCS: 0002A; 91300 ==

== ENCOUNTER 2020-12-10 20:08 | Emergency (ER) | payer BC, SELFPAY ==
--- NOTE | ~2020-12-10 | XR_ITS ---
EXAMINATION: XR chest 2V EXAM DATE: 12/10/2020 20:30 INDICATION: Racing heart atelectasis an hour. TECHNIQUE: Frontal and lateral projections of the chest obtained and reviewed. Comparison is made to prior examination from 09/25/2020. FINDINGS: The lungs are clear. There are no pleural effusions. The cardiomediastinal silhouette is within normal limits. There is no pneumothorax suspected. The bones and soft tissues are unremarkab le. There is no significant interval change. IMPRESSION: No acute cardiopulmonary findings. Reviewed, dictated and finalized at location G.
[2020-12-10 20:10] VITALS: BP 122/83; PULSE 92; RESP 28; TEMP 36.6; O2SAT 95
--- NOTE | 2020-12-10 20:10 | ECG_ITS ---
Measurements Intervals [place] Rate: 86 P: 61 NH: 158 QRS: 17 QRSD: 78 T: 31 QT: 354 QTc: 424 Interpretive Statements SINUS RHYTHM BASELINE ARTIFACT- I, III, AVR, AVL, V3 NORMAL ECG Electronically Signed On 12-10-2020 20:15:17 CDT by Jagdish Moore D.O.
[2020-12-10 21:06] VITALS: BP 153/86; PULSE 88; RESP 17; O2SAT 98
--- NOTE | 2020-12-10 21:23 | ED.ARRPALP ---
HPI - Arrhythmia/Palpitations General Chief Complaint: Arrhythmia/Palpitations Stated Complaint: heart palpitations Time Seen by Provider: 12/10/20 20:35 Source: patient Mode of arrival: EMS Limitations: no limitations History of Present Illness HPI narrative: 55-year-old female Here for evaluation of her watch indicating rapid heart rate for about 10 to 15 minutes This is resolved now During the episode a friend try to check her pulse but could not successfully do so She did not have any chest pain or dizziness or shortness of breath She has had a recent normal heart catheterization and normal echocardiogram and a previous Holter that was nondiagnostic according to the patient Related Data Allergies Allergy/AdvReac Type Severity Reaction Status Date / Time cefuroxime Allergy Unknown unknown Verified 12/10/20 20:16 cephalexin Allergy Unknown unknown Verified 12/10/20 20:16 Review of Systems Review of Systems: All systems reviewed & are unremarkable except as noted in HPI and below Constitutional: Constitutional: Reports no additional constitutional complaints, Denies chills, Denies fever(s) and Denies headache(s) Eyes: Eyes: Reports no additional eye complaints and Denies change in vision ENT: Denies headache(s) and Denies sore throat Cardiovascular: Cardiovascular: Denies chest pain, Reports rapid heart rate, Denies radiating jaw, neck or arm pain and Denies dyspnea Respiratory: Respiratory: Denies cough and Denies dyspnea Gastrointestinal: Gastrointestinal: Denies abdominal pain and Denies vomiting Genitourinary: Genitourinary: Denies urinary frequency and Denies dysuria Musculoskeletal: Musculoskeletal: Denies deformity, Denies arthralgias, Denies joint swelling and Denies numbness Integumentary/Breasts: Skin/Breast: Denies rash and Denies wounds Neurologic: Denies headache(s), Denies focal weakness and Denies numbness Psychiatric: Psychiatric: Reports no additional psychiatric complaints Endocrine: Endocrine: Reports no additional endocrine complaints Hematologic/Lymphatic: Hematologic/Lymphatic: Reports no additional hematologic/lymphatic complaints Allergic/Immunologic: Allergic/Immunologic: Reports no additional allergic/immunologic complaints PMF Past Medical History Medical History Complete rotator cuff tear or rupture of right shoulder, not specified as traumatic Irritable bowel Lumbar radiculitis Neuropathy Right rotator cuff tear Surgical History Surgical History H/O section (~10/2003) H/O section (~01/2007) H/O dilation and curettage (~2002) S/P tonsillectomy and adenoidectomy Family History Family History (Updated 10/14/20 @ 13:23 by Megha Crowe PA-C) Father Family history of gout Hypertension Family history of alcoholism Cerebrovascular accident Family history of arthritis AAA (abdominal aortic aneurysm) Carotid artery disease Mother Hypertension Family history of arthritis Family history of malignant neoplasm of breast in first degree relative Other Family history of scoliosis Social History Social History (Updated 10/14/20 @ 08:31 by Holly Hanna [facility]) Social History: to Rufino who is the durable power energy attorney for healthcare. The patient is a full code. She has 2 children. She is a homemaker. Lifelong nonsmoker. Does not use any alcohol or illicit drugs. Second hand tobacco smoke exposure: No Alcohol intake: never Substance use: never Substance use type: does not use Gender identity (if verbalized by the patient): Female Spiritual care concerns: No Exam Const: General: cooperative, no acute distress and alert Orientation/consciousness: patient oriented x3 (alert) HENMT: Head: normal to inspection, normocephalic and atraumatic Ears: external ears normal General nose exam: no
[2020-12-10 21:33] LABS: Basophils Percent Auto 0.4 % (0.2-1.2); Eosinophils Absolute Auto 0.3 K/mm3 (0-0.3); Eosinophils Percent Auto 3.8 % (0-4.4); Hematocrit 42.2 % (37.0-47.0); Hemoglobin 13.7 g/dL (12.0-15.0); Immature Granulocyte Absolute 0.02 K/mm3 (0.00-0.031); Immature Granulocyte Percent A 0.3 % (0-0.5); Lymphocytes Absolute Auto 1.58 K/mm3 (0.9-3.2); Lymphocytes Percent Auto 21.4 % (18.3-44.2); Mean Corpuscular HGB Conc 32.5 g/dl (32-36); Mean Corpuscular Hemoglobin 30.6 pg (26-34); Mean Corpuscular Volume 94.4 fl (80-100); Mean Platelet Volume 9.5 fl (7.4-10.4); Monocytes Absolute Auto 0.5 K/mm3 (0.1-0.6); Monocytes Percent Auto 6.2 % (2.6-8.5); Neutrophils Percent Auto 67.9 % (45.5-73.1); Platelet Count Result 215 k/mm3 (150-375); Red Blood Count 4.47 M/mm3 (4.2-5.4); White Blood Count 7.4 K/mm3 (4.5-10.0)
[2020-12-10] MEDS: ASPIRIN 81 MG CHEWABLE TABLET 324 MG PO (21:37)
[2020-12-10 21:43] LABS: Anion Gap 9 mmol/L (8-16); Blood Urea Nitrogen 13 mg/dL (7-17); Calcium 9.2 mg/dL (8.4-10.2); Carbon Dioxide 24 mmol/L (22-30); Chloride 107 mmol/L (98-107); Estimated CRCL calculation 91 ml/min; Estimated Glomerular Filt Rate > 60; Glucose 96 mg/dL (65-105); Potassium 3.8 mmol/L (3.4-5.0); Sodium 140 mmol/L (137-145)
[2020-12-10 21:45] LABS: INR 0.9; Prothrombin Time 12.7 Seconds (11.1-14.7)
[2020-12-10 21:55] LABS: Troponin I < 0.012 ng/mL (0.000-0.034)
[2020-12-10 22:30] VITALS: BP 140/76; PULSE 84; RESP 18; O2SAT 97
[2020-12-10 23:06] LABS: Magnesium 2.1 mg/dL (1.6-2.3)
[2020-12-10 23:19] LABS: Troponin I < 0.012 ng/mL (0.000-0.034)
[2020-12-10 23:42] VITALS: BP 146/78; PULSE 85; RESP 18; O2SAT 100
== END 2020-12-10 23:42 | disposition home or self-care (01) ==
PROVIDERS: Emergency Provider Emergency Medicine; PCP Family Medicine
DX: R00.2 Palpitations (principal); K58.9 Irritable bowel syndrome, unspecified; G62.9 Polyneuropathy, unspecified
CPT/HCPCS: 36415; 71046; 80048; 83735; 84443; 84484; 85025; 85610; 85730; 93005; 99284; A9270

== ENCOUNTER 2021-01-21 10:13 | Outpatient (CLI) | payer BC, SELFPAY ==
--- NOTE | ~2021-01-21 | MM_ITS ---
EXAMINATION: MM screening collin BI w elio HISTORY: Screening mammogram TECHNIQUE: Craniocaudal and mediolateral oblique 3-D tomosynthesis images were obtained and synthetic 2-D images were generated. CAD analysis was submitted and interpreted. COMPARISON: 01/18/2020, 10/05/2018, 10/01/2017 bilateral digital screening mammogram examinations BREAST PARENCHYMAL COMPOSITION: The breasts are almost entirely fatty. FINDINGS: There is no evidence of suspicious mass, calcification, or architectural distortion to sugg est malignancy in either breast. There has been no suspicious interval change. IMPRESSION: 1. No mammographic evidence of malignancy. 2. Recommend routine screening mammography in one year. BI-RADS Category 1: Negative Reviewed, dictated and finalized at location A.
== END 2021-01-21 10:14 | disposition home or self-care (01) ==
LOC: ANHIMG 10:15
PROVIDERS: PCP Family Medicine; Visit Provider Obstetrics & Gynecology
DX: Z12.31 Encounter for screening mammogram for malignant neoplasm of breast (principal)
CPT/HCPCS: 77063; 77067

== ENCOUNTER 2022-04-09 09:26 | Outpatient (CLI) | payer BC, SELFPAY ==
--- NOTE | ~2022-04-09 | MM_ITS ---
EXAMINATION: MM screening collin BI w elio HISTORY: Screening TECHNIQUE: Craniocaudal and mediolateral oblique 3-D tomosynthesis images were obtained and synthetic 2-D images were generated. CAD analysis was submitted and interpreted. COMPARISON: Comparison to multiple prior studies sequentially, with oldest reviewed study dated 08/13. BREAST PARENCHYMAL COMPOSITION: There are scattered areas of fibroglandular density. FINDINGS: There is no evidence of suspicious mass, calcification, or architectural distortion to sugg est malignancy in either breast. There has been no suspicious interval change. IMPRESSION: 1. No mammographic evidence of malignancy. 2. Recommend routine screening mammography in one year. BI-RADS Category 1: Negative Reviewed, dictated and finalized at location A.
== END 2022-04-09 09:27 | disposition home or self-care (01) ==
LOC: ANHIMG 09:28
PROVIDERS: PCP Family Medicine; Visit Provider Obstetrics & Gynecology
DX: Z12.31 Encounter for screening mammogram for malignant neoplasm of breast (principal)
CPT/HCPCS: 77063; 77067

== ENCOUNTER 2022-04-16 07:47 | Outpatient (CLI) | payer BC, SELFPAY ==
--- NOTE | 2022-04-28 18:47 | WPDHOMESLEEP ---
Sleep Study - Home Unattended Date of Study: 04/16/22 Ordering Provider: Gorge Coronel MD Interpreting Provider: Carola Daley, DO Home Sleep Study Type: Watch PAT Height: 1.6 m Weight: 86.636 kg Body Mass Index: 33.8 Neck Circumference (inches): 15 [place]: 5 Reason for Sleep Study Daytime hypersomnia Sleep History The patient is a 56-year-old female with. , diverticulosis, palpitations and hyperlipidemia that had a sleep study ordered by her bottle house quality control technician for evaluation of sleep apnea. She denies awakening from sleep short of breath. He occasionally snores but it is never loud enough that others complain. She rarely has trouble sleeping when she has a cold. She denies waking up gasping for air throughout the night. She denies having breathing problems at night observed by herself or others. She denies sweating excessively at night. She denies having heart palpitations or irregular heartbeats during the night. Rarely falls asleep during the day but never while driving. She denies sleep paralysis, cataplexy and hypnagogic / hypnopompic hallucinations. She denies having trouble at school or work due to sleepiness. She denies feeling afraid of going to sleep. She rarely has nightmares. She occasionally remembers her dreams. She occasionally has thoughts racing through her mind. She rarely feels sad, depressed or anxious. She frequently has muscular tension. She denies noticing parts of her body jerk. She denies kicking during the night. She denies having crawling and aching feelings in her legs but occasionally has leg pain during the night. She occasionally grinds her teeth during sleep but never awakens with morning jaw pain. She is frequently bothered by pain during the day and occasionally awakened by pain during the night. He occasionally wakes up feeling stiff in the morning. She occasionally wakes up with sore or achy muscles. She occasionally wakes up the pain in neck, spine or other joints. She goes to bed at 11:00 p.m. on both weekdays and weekends. It takes her 5-10 minutes to fall asleep. The number of times she wakes up throughout the night is variable. When she awakens, on a she will look at the clock and fall back asleep. He wakes up at 5:45 a.m. on weekdays and between 8-9 a.m. on the weekends. She typically gets 6-7 hours of sleep per night. She will not stay in bed very long after waking up in the morning. She currently lives with her , child and a visiting college student. She does not consume any caffeinated beverages within 2 hours of bedtime. She does not engage in physical exercise before bedtime. She will watch television before falling asleep. She denies taking naps in the afternoon or the evening. She drinks 3 cups of caffeinated beverages throughout the day. She denies tobacco, alcohol and recreational drug use. [facility] Past Medical History Medical History Complete rotator cuff tear or rupture of right shoulder, not specified as traumatic Irritable bowel Lumbar radiculitis Neuropathy Right rotator cuff tear Surgical History Surgical History H/O section (~10/2003) H/O section (~01/2007) H/O dilation and curettage (~2002) S/P tonsillectomy and adenoidectomy Family History Family History Father Family history of gout Hypertension Family history of alcoholism Cerebrovascular accident Family history of arthritis AAA (abdominal aortic aneurysm) Carotid artery disease Mother Hypertension Family history of arthritis Family history of malignant neoplasm of breast in first degree relative Other Family history of scoliosis Social History Social History Social History: to Rufino who is the durable power atto
[2022-04-28 19:03] VITALS: BMI 33.8
== END 2022-04-21 12:26 | disposition home or self-care (01) ==
LOC: ANHCSM 07:48
PROVIDERS: PCP Family Medicine; Visit Provider Internal Medicine Cardiovascular Disease
DX: G47.10 Hypersomnia, unspecified (principal); G47.33 Obstructive sleep apnea (adult) (pediatric)
CPT/HCPCS: 95800

== ENCOUNTER → 2023-05-10 13:58 | Outpatient (CLI) | payer BC, SELFPAY ==
--- NOTE | ~2023-05-10 | XR_ITS ---
EXAMINATION: XR knee RT 3V DATE: 05/10/2023 14:55 INDICATION: Right knee pain. TECHNIQUE: 3 views of right knee were obtained. COMPARISON: None. FINDINGS: Bone alignment is normal. No fracture. There is mild tricompartmental osteoarthritis. No kn ee joint effusion. IMPRESSION: 1. Mild right knee osteoarthritis. Reviewed, dictated and finalized at location A. DING TANK TENDER
== END ==
PROVIDERS: PCP Physician Assistant; Visit Provider Physician Assistant
DX: M17.11 Unilateral primary osteoarthritis, right knee (principal)
CPT/HCPCS: 73562

== ENCOUNTER → 2023-06-10 13:49 | Outpatient (CLI) | payer BC, SELFPAY ==
--- NOTE | ~2023-06-10 | MM_ITS ---
EXAMINATION: MM screening collin BI w elio HISTORY: Screening TECHNIQUE: Craniocaudal and mediolateral oblique 3-D tomosynthesis images were obtained and synthetic 2-D images were generated. CAD analysis was submitted and interpreted. COMPARISON: Comparison to multiple prior studies sequentially, with oldest reviewed study dated 08/18. BREAST PARENCHYMAL COMPOSITION: There are scattered areas of fibroglandular density. FINDINGS: There is no evidence of suspicious mass, calcification, or architectural distortion to sugg est malignancy in either breast. There has been no suspicious interval change. IMPRESSION: 1. No mammographic evidence of malignancy. 2. Recommend routine screening mammography in one year. BI-RADS Category 1: Negative Reviewed, dictated and finalized at location A. INTEGRITY CONSULTANT
== END ==
PROVIDERS: PCP Obstetrics & Gynecology; Visit Provider Obstetrics & Gynecology
DX: Z12.31 Encounter for screening mammogram for malignant neoplasm of breast (principal)
CPT/HCPCS: 77063; 77067

== ENCOUNTER 2024-06-12 13:29 | Outpatient (CLI) | payer BC, SELFPAY ==
--- NOTE | ~2024-06-12 | MM_ITS ---
EXAMINATION: MM screening collin BI w elio HISTORY: Screening TECHNIQUE: Craniocaudal and mediolateral oblique 3-D tomosynthesis images were obtained and synthetic 2-D images were generated. CAD analysis was submitted and interpreted. COMPARISON: Comparison to multiple prior studies sequentially, with oldest reviewed study dated 11/2017. BREAST PARENCHYMAL COMPOSITION: Not dense: There are scattered areas of fibroglandular density. FINDINGS: There is no evidence of suspicious mass, calcification, or architectural distortion to sugg est malignancy in either breast. There has been no suspicious interval change. IMPRESSION: 1. No mammographic evidence of malignancy. 2. Recommend routine screening mammography in one year. BI-RADS Category 1: Negative Reviewed, dictated and finalized at location B. WRECKER
== END 2024-06-12 13:30 | disposition home or self-care (01) ==
LOC: CHSIMG 13:30
PROVIDERS: PCP Family Medicine; Visit Provider Obstetrics & Gynecology
DX: Z12.31 Encounter for screening mammogram for malignant neoplasm of breast (principal)
CPT/HCPCS: 77063; 77067

== ENCOUNTER 2025-06-15 12:16 | Outpatient (CLI) | payer BC, SELFPAY ==
--- NOTE | ~2025-06-15 | MM_ITS ---
EXAMINATION: MM screening collin BI w elio HISTORY: Screening TECHNIQUE: Craniocaudal and mediolateral oblique 3-D tomosynthesis images were obtained and synthetic 2-D images were generated. CAD analysis was submitted and interpreted. COMPARISON: Comparison to multiple prior studies sequentially, with oldest reviewed study dated 10/05/2018. BREAST PARENCHYMAL COMPOSITION: Not Dense: The breasts are almost entirely fatty. FINDINGS: There is no evidence of suspicious mass, calcification, or architectural distortion to suggest malignancy in either breast. There has been no suspicious interval change. IMPRESSION: 1. No mammographic evidence of malignancy. 2. Recommend routine screening mammography in one year. BI-RADS Category 1: Negative Reviewed, dictated and finalized at location O. T CONTROLS SPECIALIST
== END 2025-06-15 12:17 | disposition home or self-care (01) ==
PROVIDERS: PCP Physician Assistant; Visit Provider Obstetrics & Gynecology
DX: Z12.31 Encounter for screening mammogram for malignant neoplasm of breast (principal)
CPT/HCPCS: 77063; 77067